=== PATIENT | female | born 1985 | race African-American/Black ===

== ENCOUNTER 2021-11-05 15:59 | Emergency (ER) | payer BC, SELFPAY ==
[2021-11-05 16:06] VITALS: BP 134/81; PULSE 90; RESP 18; TEMP 36.7; O2SAT 100
[2021-11-05 17:11] LABS: Basophils Percent Auto 0.4 % (0.2-1.2); Eosinophils Absolute Auto 0.1 K/mm3 (0-0.3); Eosinophils Percent Auto 1.2 % (0-4.4); Hematocrit 38.4 % (37.0-47.0); Hemoglobin 12.1 g/dL (12.0-15.0); Immature Granulocyte Absolute 0.01 K/mm3 (0.00-0.031); Immature Granulocyte Percent A 0.1 % (0-0.5); Lymphocytes Absolute Auto 2.28 K/mm3 (0.9-3.2); Lymphocytes Percent Auto 29.5 % (18.3-44.2); Mean Corpuscular HGB Conc 31.5 g/dl (32-36); Mean Corpuscular Hemoglobin 25.6 pg (26-34); Mean Corpuscular Volume 81.2 fl (80-100); Mean Platelet Volume 9.9 fl (7.4-10.4); Monocytes Absolute Auto 0.7 K/mm3 (0.1-0.6); Monocytes Percent Auto 8.5 % (2.6-8.5); Neutrophils Absolute Auto 4.7 K/mm3 (1.3-6.7); Neutrophils Percent Auto 60.3 % (45.5-73.1); Platelet Count Result 270 k/mm3 (150-375); Red Blood Count 4.73 M/mm3 (4.2-5.4); Red Cell Distribution Width 13.6 % (11.5-14.5); White Blood Count 7.7 K/mm3 (4.5-10.0)
[2021-11-05 17:27] LABS: Beta HCG Quantitative 25.32 mIU/ML
--- NOTE | 2021-11-05 19:41 | ED.PREGNANCY ---
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 Reports she started having some spotting yesterday. Today she has had some bright red blood. She has not been evaluated or had an ultrasound yet this . Does report some mild cramping. Denies fever. Related Data Allergies Allergy/AdvReac Type Severity Reaction Status Date / Time No Known Allergies Allergy Verified 11/05/21 19:31 Review of Systems Review of Systems: CONSTITUTIONAL: Denies fever GASTROINTESTINAL: Denies vomiting All systems reviewed & are unremarkable except as noted in HPI and below PMFSH Past Medical History Medical History (Updated 11/05/21 @ 20:57 by Lucinda Santizo PA-C) No active medical problems Social History Social History (Updated 11/05/21 @ 19:42 by Lucinda Santizo PA-C) Smoking status: Never smoker Exam Narrative: GENERAL: Well-appearing, well-nourished, and in no acute distress. HEAD: Normocephalic, atraumatic. EYES: EOMI. CHEST: Clear to auscultation. No respiratory distress. No wheezes rales or rhonchi HEART: Regular rate and rhythm. No murmur heard. Normal peripheral pulses. ABDOMEN: Soft, nontender, nondistended, normal active bowel sounds. EXTREMITIES: Normal range of motion. No edema. SKIN: Warm, dry, no rash. NEURO: No focal deficits. Alert and oriented x3. PSYCH: Normal mood and affect PELVIC: Small amount of dark red blood in the vaginal vault. Normal appearing cervix, closed Course Vital Signs Vital signs: Vital Signs Temperature 98.0 F 11/05/21 16:06 Pulse Rate 90 11/05/21 16:06 Respiratory Rate 18 11/05/21 16:06 Blood Pressure 134/81 11/05/21 16:06 Pulse Oximetry 100 11/05/21 16:06 Oxygen Delivery Room Air 11/05/21 16:06 Temperature 98.0 F 11/05/21 16:06 Pulse Rate 90 11/05/21 16:06 Respiratory Rate 18 11/05/21 16:06 Blood Pressure 134/81 06/29/22 16:06 Pulse Oximetry 100 11/05/21 16:06 Oxygen Delivery Room Air 11/05/21 16:06 MDM - OB/Uterine Contractions MDM Narrative Medical decision making narrative: Patient presents to the emergency department for vaginal bleeding, about 6 weeks by LMP. Her vitals are stable. No concerning amount of bleeding noted on exam. Hemoglobin is normal. Patient is B+. Quantitative beta-hCG is noted to be 25.32. Spoke with patient about work-up. I attempted to notify her primary provider, but was unable to get a hold of her. Will send patient with repeat quantitative beta-hCG order and is instructed to call in the morning to make an appointment with her provider. She is stable and felt appropriate for further outpatient evaluation. She was given warnings to return to the ER Lab Data Attestation: I reviewed the patient's lab results. Result diagrams: 11/05/21 16:52 Labs: Lab Results 11/05/21 11/05/21 11/05/21 Range/Units 16:52 16:52 16:52 WBC 7.7 (4.5-10.0) K/mm3 RBC 4.73 (4.2-5.4) M/mm3 Hgb 12.1 (12.0-15.0) g/dL Hct 38.4 (37.0-47.0) % MCV 81.2 (80-100) fl MCH 25.6 L (26-34) pg MCHC 31.5 L (32-36) g/dl RDW 13.6 (11.5-14.5) % Plt Count 270 (150-375) k/mm3 MPV 9.9 (7.4-10.4) fl Immature Gran % (Auto) 0.1 (0-0.5) % Neut % (Auto) 60.3 (45.5-73.1) % Lymph % (Auto) 29.5 (18.3-44.2) % [place] % (Auto) 8.5 (2.6-8.5) % Eos % (Auto) 1.2 (0-4.4) % Baso % (Auto) 0.4 (0.2-1.2) % Lymph # (Auto) 2.28 (0.9-3.2) K/mm3 [place] # (Auto) 0.7 H (0.1-0.6) K/mm3 Eos # (Auto) 0.1 (0-0.3) K/mm3 Baso # (Auto) 0.0 (0.0-0.1) K/mm3 Abs Immat Gran (auto) 0.01 (0.00-0.031) K/mm3 Absolute Neuts (auto) 4.7 (1.3-6.7) K/mm3 Absolute Nucleated RBC
== END 2021-11-05 21:04 | disposition home or self-care (01) ==
PROVIDERS: Emergency Medicine; Emergency Provider Emergency Medicine; PCP Internal Medicine
DX: O20.0 Threatened abortion (principal)
CPT/HCPCS: 36415; 84702; 85025; 85461; 99284

== ENCOUNTER 2024-09-21 15:47 | Emergency (ER) | payer OTHER, SELFPAY ==
--- NOTE | ~2024-09-21 | US_ITS ---
FIRST TRIMESTER ULTRASOUND 09/21/2024 17:30 CDT Ordering provider: Sanjeev Cruz MD History: . VB in . Comparison: None. FINDINGS: INTRAUTERINE GESTATIONAL SAC: Present. YOLK SAC: Not seen. POLE: Present. Measures 0.56 cm. equivalent to 6 weeks and 1 day. No heart rate. GESTATIONAL AGE BY TODAY'S US: 6 weeks and 1 day. UTERUS: The uterus measures 14.6x 5.1x 9.2 cm. in length which is within normal limits. No myometrial masses. FREE FLUID: None. OVARIES: Normal in size with the right measuring 4.2x 1.4x 2.1 cm and the left measuring 3x 1.6x 1.9 cm. Doppler flow is demonstrated within both ovaries. ADNEXAL MASSES: None. IMPRESSION: Intrauterine with crown rump length measuring 0.56 cm equivalent to 6 weeks and 1 day. No heart tone is noted. Follow-up and clinical correlation advised. Dr. Sanjeev Cruz was notified with the result of the patient at 6:40 PM on September 21, 2024. Reviewed, dictated and finalized at location A. IMPRESSION: Intrauterine with crown rump length measuring 0.56 cm equivalent to 6 weeks and 1 day. No heart tone is noted. Follow-up and clinical correlation advised. Dr. Sanjeev Cruz was notified with the result of the patient at 6:40 PM on 2024.
--- OUTSIDE RECORDS SUMMARY | 2024-09-21 15:50 | XMS_ITS | Clinical Summary ---
Author Organization [facility] Address [address] [place] [address] Care Team Providers Care Machine Turner Name Role Phone Unavailable Primary Care Provider Unavailabl e Source Comments [facility],non-owned Affiliates and Associated Physician Practices is amultiple site organization consisting of ambulatory clinics and hospital sitesin [place], [place], [place] and [place]. This disclosure is being madepursuant to the Care Everywhere program and may not contain all information available regarding this patient. Last updated 18.[facility] Allergies No known active allergies Medications * Be aware that medications may not be up to date on this document. Alwaysverify current medications with the patient. Vit-DSS-Fe Fum-FA ( vitamin with iron) tabletIndicatio ns: Take 1 (one) tablet by mouth once daily Reasons: Active vitamin D3 (Cholecalcifero l) 25 MCG (1000 UNITS) tabletIndicatio ns:Vitamin D Deficiency Take 50 (fifty) tablets by mouth every 7 days Reasons: Vitamin D Deficiency Active famotidine (Pepcid) 20 MG tablet Take 1 (one) tablet by mouth once daily Active Active Problems Problem Noted Date Diagnosed Date BMI 45.0-49.9, adult 01/27/2023 Advanced maternal age in multigravida, third tri mester 01/27/2023 Recurrent loss, currently Family History Medical History Relation Name Comments Cancer Maternal Grandfather COPD - Chronic Obstructive Pulmonary Disease Maternal Grandmother Hypertension Maternal Grandmother Hypertension Mother Relation Name Status Comments Maternal Grandfather Maternal Grandmother Mother Social History Tobacco Use Types Packs/Day Years Used Date Smoking Tobacco: Never Smokeless Tobacco: Never Tobacco Cessation:Counseling Given: Not Answered Alcohol Use Standard Drinks/Week Comments Not Currently 0 (1 standard drink = 0.6 oz pur e alcohol) Comments No Sex and Gender Information Value Date Recorded Sex Assigned at Not on file Legal Sex Female 3:24 PM CDT Gender Identity Not on file Sexual Orientation Not on file Last Filed Vital Signs Vital Sign Reading Time Taken Comments Blood Pressure 112/69 03/12/2023 9:42 AM CDT Pulse 88 03/12/2023 9:42 AM CDT Temperature - - Respiratory Rate 18 03/12/2023 9:42 AM CDT Oxygen Saturation - - Inhaled Oxygen Concentration - - Weight 114.5 kg (252 lb 6.4 oz) 10/07/2022 2:28 PM CDT Height 157.5 cm (5' 2 ) 10/07/2022 2:28 PM CDT Body Mass Index 46.16 10/07/2022 2:28 PM CDT Plan of Treatment Upcoming Encounters Date Type Department Care Team (Late st Contact Info) Description 10/06/2024 2:30 PM CDT Appointment [facility] [address] [place], [place] [id number] Health Maintenance Due Date Last Done Comments PAP SMEAR 1987 HIV SCREENING 10/16/2002 HEPATITIS C SCREENING 10/12/2005 DTAP/TDAP/TD VACCINES (1 - Tdap) 10/16/2006 HEPATITIS B VACCINE (1 of 3 - 19+ 3-dose series) 10/16/2006 COVID-19 VACCINE (4 - 2023-2 5 season) 2024 03/13/2021, 06/21/2020, 05/31/2020 DEPRESSION SCREENING 05/10/2024 INFLUENZA VACCINE (Season Ended) 2025 02/16/2017, 03/20/2014 ZOSTER VACCINE (1 of 2) 10/16/2037 HIB VACCINE Aged Out No longer eligi ble based on patient's age to complete this topic HPV VACCINE Aged Out No longer eligi ble based on patient's age to complete this topic MENINGOCOCCAL (Group B) VACCINE SHARED DECISION-MAKING Aged Out No longer eligible based on patient's age to complete this topic MENINGOCOCCAL GROUPS A/C/Y/W VACCINE Aged Out No longer eligible b ased on patient's age to complete this topic PNEUMOCOCCAL VACCINE Aged Out No long er eligible based on patient's age to complete this topic
--- OUTSIDE RECORDS SUMMARY | 2024-09-21 15:50 | XMS_ITS | Data Portability ---
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 Plan of Treatment Reminders Order Date Submit Date Provider Last Modified By Organization Details Last Modified Time Details Appointments None recorded . Lab urinalys is, dipstick 2023 024 In-Office Order, Internal Use Only DO Not Attach Compendium DO Not Attach Compendium, Do Not Delete/merge, [id number] 03:49:00 urinalys is, dipstick 2022 023 [email or web address] In-Office Order, Internal Use Only DO Not Attach Compendium DO Not Attach Compendium, Do Not Delete/merge, [id number] 10:43:04 urinalys is, dipstick 2022 023 [email or web address] In-Office Order, Internal Use Only DO Not Attach Compendium DO Not Attach Compendium, Do Not Delete/merge, [id number] 11:03:22 Referral None recorded . Procedures None recorded . Surgeries None recorded . Imaging None recorded . Medication Orders fluconaz ole 150 mg tablet 2022 023 [id number], [address] , [place], [place], [id number], 3 11:20:06 Patient TargetsNo targets recorded. Patient Instructions Encounter Date Encounter Id Patient Instructions Last Modified By Organization Details Last Modified Time 03/08/2023 [id number] Attending Physician Attestation I did not personally see or examine the patient with the resident. I was physically present to provide indirect supervision through entire encounter. I have reviewed the documentation and agree with the history, physical findings, work-up, and medical decision making as recorded. Karen Blackwood MD mmetias Not available 03/08/2023 10:56:43 03/15/2023 [id number] On the date of this encounter, I was immediately available to assist the resident/fellow in the care of the patient, and have reviewed and agree with the resident s findings and plan of care. ~MD yeison Goodwin Not available 03/19/2023 13:16:40 03/29/2023 [id number] On the date of this encounter, I was immediately available to assist the resident/fellow in the care of the patient, and have reviewed and agree with the resident s findings and plan of care. ~MD yeison Goodwin Not available 03/29/2023 11:59:11 06/07/2023 [id number] On the date of this encounter, I saw and examined the patient, personally verifying the pittman and critical findings in the resident s note. I reviewed and agree with the resident/fellow s findings and plan. ~MD yeison Goodwin Not available 06/11/2023 10:39:23 Reason for Referral None Reported. Results Created Date Observation Date Name Description Value Unit Range Abnormal Flag Note LastModifiedBy Organization Detail LastModifiedTime 02/09/2002/10/2023 URINE CULTU SHERIE GAINES urine culture, routine FINAL REPORT Not Available [facility] ([facility]) [address] [place], [address], 02/10/2023 05:10:05 02/09/2002/10/2023 URINE CULTU RESHERIE result 1 COMMEN T Mixed uroge nital purvi 25,00 0-50, 000 colon y formi ng units per mL Not Available [facility] ([facility]) [address], [place], [address], 02/10/2023 05:10:05 02/09/20 23 02/08/2023 urina lysis , dipst ick Leukocytes Small Not Available In-Offi ce Order Internal Use Only DO Not Attach Compendium DO Not Attach Compendium, Do Not Delete/merge, [id number] 02/08/2023 16:04:22 02/09/20 23 02/08/2023 urina lysis , dipst ick Nitrite negati ve Not Available In-Office Order Internal Use Only DO Not Attach Compendium DO Not Attach Compendium, Do Not Delete/merge, [id number] 02/08/2023 16:04:22 02/09/20 23 02/08/2023 urina lysis , dipst ick Urobilinogen 2 Not Available In-Of fice Order Internal Use Only DO Not Attach Compendium DO Not Attach Compendium, Do Not Delete/merge, [id number] 02/08/2023 16:04:22 02/09/20 23 02/08/2023 urina lysis , dipst ick Protein Negati ve Not Available In-Office Order Internal Use Only DO Not Attach Compendium DO Not Attach Compendium, Do Not Delete/merge, [id number] 02/08/2023 16:04:22 02/09/20 23 02/08/2023 urina lysis , dipst ick pH 6.0 Not Available In-Office Order Internal Use Only DO Not Attach Compendium DO Not Attach Compendium, Do Not Delete/merge, [id number] 02/08/2023 16:04:22 02/09/20 23 02/08/2023 urina lysis , dipst ick Blood Non-He molyze d: Trace Not Available In-Office Order Internal Use Only DO Not Attach Compendium DO Not Attach Compendium, Do Not Delete/merge, [id number] 02/08/2023 16:04:22 02/09/20 23 02/08/2023 urina lysis , dipst ick Specific Haines 1.025 Not Available In-Off ice Order Internal Use Only DO Not Attach Compendium DO Not Attach Compendium, Do Not Delete/merge, [id number] 02/08/2023 16:04:22 02/09/20 23 02/08/2023 urina lysis , dipst ick Ketone Negati ve Not Available In-Office Order Internal Use Only DO Not Attach Compendium DO Not Attach Compendium, Do Not Delete/merge, [id number] 02/08/2023 16:04:22 02/09/20 23 02/08/2023 urina lysis , dipst ick Bilirubin Negati ve Not Available In-Office Order Internal Use Only DO Not Attach Compendium DO Not Attach Compendium, Do Not Delete/merge, [id number] 02/08/2023 16:04:22 02/09/20 23 02/08/2023 urina lysis , dipst ick Glucose Negati ve Not Available In-Office Order Internal Use Only DO Not Attach Compendium DO Not Attach Compendium, Do Not Delete/merge, [id number] 02/08/2023 16:04:22 02/16/20 23 02/16/2023 NUSWA B VAGIN ITIS PLUS (VG+) atopobium vaginae LOW - 0 score Not Available [facility] ([facility]) [address] [place], [address], 02/17/2023 14:11:30 02/16/20 23 02/16/2023 NUSWA B VAGIN ITIS PLUS (VG+) bvab 2 LOW - 0 score Not Available [facility] ([facility]) [address] [place], [address], 02/17/2023 14:11:30 02/16/20 23 02/16/2023 NUSWA B VAGIN ITIS PLUS (VG+) megasphaera 1 LOW - 0 score Calcu late total score by binh g the 3 indiv idual bacte rial vagin osis (BV) marke r score s toget her. Total score is inter prete d as follo ws: Total score 0-1: Indic ates the absen ce of BV. Total score 2: Indet ermin ate for BV. Addit ional clini cristina data shoul d be evalu ated to estab douglas a diagn osis. Total score 3-6: Indic ates the prese nce of BV. This test was devel oped and its perfo rmanc e zoila cteri stics deter mined by [facility]. It has not been clear ed or appro zoë by the Food and Drug Admin istra tion. Not Available [facility] ([facility]) [address], [place], [address], 02/17/2023 14:11:30 02/16/2002/16/2023 NUSWA B VAGIN ITIS PLUS (VG+) paulei albicans, ABIGAIL NEGATI VE negati ve Not Available [facility] ([facility]) [address] [place], [address], 02/17/2023 14:11:30 02/16/2002/16/2023 NUA B VAGIN ITIS PLUS (VG+) paulie glabrata, ABIGAIL NEGATI VE negati ve Not Available [facility] ([facility]) [address] [place], [address], 02/17/2023 14:11:30 02/16/2002/17/2023 NUA B VAGIN ITIS PLUS (VG+) trich vag by ABIGAIL NEGATI VE negati ve Not Available [facility] ([facility]) [address] [place], [address], 02/17/2023 14:11:30 02/16/2002/17/2023 NUSWA B VAGIN ITIS PLUS (VG+) chlamydia trachomatis, ABIGAIL NEGATI VE negati ve Not Available [facility] ([facility]) [address] [place], [address], 02/17/2023 14:11:30 02/16/2002/17/2023 NUSWA B VAGIN ITIS PLUS (VG+) neisseria gonorrhoeae, ABIGAIL NEGATI VE negati ve Not Available [facility] ([facility]) [address] [place], [address], 02/17/2023 14:11:30 02/16/2002/17/2023 STREP GP B ABIGAIL strep gp B ABIGAIL NEGATI VE negati ve Cente rs for Disea se Contr ol and Preve ntion (CDC) and Ameri can Congr ess of Obste trici ans and Gynec ologi sts (ACOG ) guide lines for preve ntion of perin atal group B strep tococ cristina (GBS) disea se speci fy co-co llect ion of a vagin al and recta l swab speci men to maxim ize sensi tivit y of GBS detec tion. Per the CDC and ACOG, swabb ing both the lower vagin a and rectu m subst antia lly incre ases the yield of detec tion antonia red with sampl ing the vagin a alone . Penic illin G, ampic illin , or cefaz luis are indic ated for intra partu m proph ylaxi s of perin atal GBS colon izati on. Refle x susce ptibi lity testi ng shoul d be perfo rmed prior to use of clind amyci n only on GBS isola mac from penic illin -faviola rgic women who are consi dered a high risk for anaph ylaxi s. Treat ment with vanco mycin witho ut addit ional testi ng is warra nted if resis tance to clind amyci n is noted . Not Available [facility] ([facility]) [address], [place], [address], 02/17/2023 14:11:31 02/16/2002/15/2023 urina lysis , dipst ick Leukocytes Trace Not Available In-Offi ce Order Internal Use Only DO Not Attach Compendium DO Not Attach Compendium, Do Not Delete/merge, [id number] 02/15/2023 08:58:36 02/16/2002/15/2023 urina lysis , dipst ick Nitrite negati ve Not Available In-Office Order Internal Use Only DO Not Attach Compendium DO Not Attach Compendium, Do Not Delete/merge, [id number] 02/15/2023 08:58:36 02/16/2002/15/2023 urina lysis , dipst ick Urobilinogen .2 Not Available In-Of fice Order Internal Use Only DO Not Attach Compendium DO Not Attach Compendium, Do Not Delete/merge, 02/15/2023 08:58:36 02/16/2002/15/2023 urina lysis , dipst ick Protein Negati ve Not Available In-Office Order Internal Use Only DO Not Attach Compendium DO Not Attach Compendium, Do Not Delete/merge, 02/15/2023 08:58:36 02/16/2002/15/2023 urina lysis , dipst ick pH 6.5 Not Available In-Office Order Internal Use Only DO Not Attach Compendium DO Not Attach Compendium, Do Not Delete/merge, 02/15/2023 08:58:36 02/16/2002/15/2023 urina lysis , dipst ick Blood Negati ve Not Available In-Office Order Internal Use Only DO Not Attach Compendium DO Not Attach Compendium, Do Not Delete/merge, 02/15/2023 08:58:36 02/16/2002/15/2023 urina lysis , dipst ick Specific Haines 1.020 Not Available In-Off ice Order Internal Use Only DO Not Attach Compendium DO Not Attach Compendium, Do Not Delete/merge, 02/15/2023 08:58:36 02/16/2002/15/2023 urina lysis , dipst ick Ketone Negati ve Not Available In-Office Order Internal Use Only DO Not Attach Compendium DO Not Attach Compendium, Do Not Delete/merge, [id number] 02/15/2023 08:58:36 02/16/2002/15/2023 urina lysis , dipst ick Bilirubin Negati ve Not Available In-Office Order Internal Use Only DO Not Attach Compendium DO Not Attach Compendium, Do Not Delete/merge, 02/15/2023 08:58:36 02/16/20 23 02/15/2023 urina lysis , dipst ick Glucose Negati ve Not Available In-Office Order Internal Use Only DO Not Attach Compendium DO Not Attach Compendium, Do Not Delete/merge, [id number] 02/15/2023 08:58:36 02/23/2002/23/2023 NUSWA B VAGIN ITIS PLUS (VG+) atopobium vaginae Low - 0 score Not Available [facility] ([facility]) [address], [place], [address], 02/24/2023 08:24:57 02/23/2002/23/2023 NUSWA B VAGIN ITIS PLUS (VG+) bvab 2 Low - 0 score Not Available [facility] ([facility]) [address], [place], [address], 02/24/2023 08:24:57 02/23/2002/23/2023 NUSWA B VAGIN ITIS PLUS (VG+) megasphaera 1 Low - 0 score Calcu late total score by binh underwood the 3 indiv idual bacte rial vagin osis (BV) marke r score s toget her. Total score is inter prete d as follo ws: Total score 0-1: Indic ates the absen ce of BV. Total score 2: Indet ermin ate for BV. Addit ional clini cristina data shoul d be evalu ated to estab douglas a diagn osis. Total score 3-6: Indic ates the prese nce of BV. This test was devel oped and its perfo rmanc e zoila cteri stics deter mined by [facility]. It has not been clear ed or appro zoë by the Food and Drug Admin istra tion. Not Available [facility] ([facility]) [address], [place], [address], 02/24/2023 08:24:57 02/23/2002/24/2023 NUSWA B VAGIN ITIS PLUS (VG+) paulie albicans, ABIGAIL Positi ve negati ve abnormal Not Available [facility] ([facility]) [address], [place], [address], 02/24/2023 08:24:57 02/23/2002/24/2023 NUSWA B VAGIN ITIS PLUS (VG+) paulie glabrata, ABIGAIL Negati ve negati ve Not Available [facility] ([facility]) [address], [place], [address], 02/24/2023 08:24:57 02/23/2002/24/2023 NUSWA B VAGIN ITIS PLUS (VG+) trich vag by ABIGAIL Negati ve negati ve Not Available [facility] ([facility]) [address], [place], [address], 02/24/2023 08:24:57 02/23/2002/24/2023 NUA B VAGIN ITIS PLUS (VG+) chlamydia trachomatis, ABIGAIL Negati ve negati ve Not Available [facility] ([facility]) [address], [place], [address], 02/24/2023 08:24:57 02/23/2002/24/2023 NUSWA B VAGIN ITIS PLUS (VG+) neisseria gonorrhoeae, ABIGAIL Negati ve negati ve Not Available [facility] ([facility]) [address], [place], [address], 02/24/2023 08:24:57 02/23/2002/22/2023 urina lysis , dipst ick Leukocytes Small Not Available In-Offi ce Order Internal Use Only DO Not Attach Compendium DO Not Attach Compendium, Do Not Delete/merge, [id number] 02/22/2023 09:45:25 02/23/20 23 02/22/2023 urina lysis , dipst ick Nitrite negati ve Not Available In-Office Order Internal Use Only DO Not Attach Compendium DO Not Attach Compendium, Do Not Delete/merge, [id number] 02/22/2023 09:45:25 02/23/20 23 02/22/2023 urina lysis , dipst ick Urobilinogen 1 Not Available In-Of fice Order Internal Use Only DO Not Attach Compendium DO Not Attach Compendium, Do Not Delete/merge, [id number] 02/22/2023 09:45:25 02/23/2002/22/2023 urina lysis , dipst ick Protein Trace Not Available In-Office Order Internal Use Only DO Not Attach Compendium DO Not Attach Compendium, Do Not Delete/merge, [id number] 02/22/2023 09:45:25 02/23/2002/22/2023 urina lysis , dipst ick pH 6.0 Not Available In-Office Order Internal Use Only DO Not Attach Compendium DO Not Attach Compendium, Do Not Delete/merge, 02/22/2023 09:45:25 02/23/2002/22/2023 urina lysis , dipst ick Blood Hemoly zed: Trace Not Available In-Office Order Internal Use Only DO Not Attach Compendium DO Not Attach Compendium, Do Not Delete/merge, 02/22/2023 09:45:25 02/23/2002/22/2023 urina lysis , dipst ick Specific Haines 1.030 Not Available In-Off ice Order Internal Use Only DO Not Attach Compendium DO Not Attach Compendium, Do Not Delete/merge, 02/22/2023 09:45:25 02/23/2002/22/2023 urina lysis , dipst ick Ketone Trace Not Available In-Office Order Internal Use Only DO Not Attach Compendium DO Not Attach Compendium, Do Not Delete/merge, [id number] 02/22/2023 09:45:25 02/23/2002/22/2023 urina lysis , dipst ick Bilirubin Small Not Available In-Offic e Order Internal Use Only DO Not Attach Compendium DO Not Attach Compendium, Do Not Delete/merge, 02/22/2023 09:45:25 02/23/2002/22/2023 urina lysis , dipst ick Glucose Negati ve Not Available In-Office Order Internal Use Only DO Not Attach Compendium DO Not Attach Compendium, Do Not Delete/merge, 02/22/2023 09:45:25 03/08/2003/0803/08/2023 urina lysis , dipst ick Leukocytes Trace Not Available In-Offi ce Order Internal Use Only DO Not Attach Compendium DO Not Attach Compendium, Do Not Delete/merge, [id number] 03/08/2023 10:32:28 03/08/20 23 03/08/2023 urina lysis , dipst ick Nitrite negati ve Not Available In-Office Order Internal Use Only DO Not Attach Compendium DO Not Attach Compendium, Do Not Delete/merge, [id number] 03/08/2023 10:32:28 03/08/20 23 03/08/2023 urina lysis , dipst ick Urobilinogen 1 Not Available In-Of fice Order Internal Use Only DO Not Attach Compendium DO Not Attach Compendium, Do Not Delete/merge, [id number] 03/08/2023 10:32:28 03/08/20 23 03/08/2023 urina lysis , dipst ick Protein Negati ve Not Available In-Office Order Internal Use Only DO Not Attach Compendium DO Not Attach Compendium, Do Not Delete/merge, [id number] 03/08/2023 10:32:28 03/08/20 23 03/08/2023 urina lysis , dipst ick pH 6.0 Not Available In-Office Order Internal Use Only DO Not Attach Compendium DO Not Attach Compendium, Do Not Delete/merge, [id number] 03/08/2023 10:32:28 03/08/20 23 03/08/2023 urina lysis , dipst ick Blood Negati ve Not Available In-Office Order Internal Use Only DO Not Attach Compendium DO Not Attach Compendium, Do Not Delete/merge, [id number] 03/08/2023 10:32:28 03/08/20 23 03/08/2023 urina lysis , dipst ick Specific Haines 1.030 Not Available In-Off ice Order Internal Use Only DO Not Attach Compendium DO Not Attach Compendium, Do Not Delete/merge, [id number] 03/08/2023 10:32:28 03/08/20 23 03/08/2023 urina lysis , dipst ick Ketone Negati ve Not Available In-Office Order Internal Use Only DO Not Attach Compendium DO Not Attach Compendium, Do Not Delete/merge, [id number] 03/08/2023 10:32:28 03/08/20 23 03/08/2023 urina lysis , dipst ick Bilirubin Small Not Available In-Offic e Order Internal Use Only DO Not Attach Compendium DO Not Attach Compendium, Do Not Delete/merge, [id number] 03/08/2023 10:32:28 03/08/20 23 03/08/2023 urina lysis , dipst ick Glucose Negati ve Not Available In-Office Order Internal Use Only DO Not Attach Compendium DO Not Attach Compendium, Do Not Delete/merge, 03/08/2023 10:32:28 03/15/20 23 03/15/2023 urina lysis , dipst ick Leukocytes Trace Not Available In-Offi ce Order Internal Use Only DO Not Attach Compendium DO Not Attach Compendium, Do Not Delete/merge, 03/15/2023 09:26:18 03/15/20 23 03/15/2023 urina lysis , dipst ick Nitrite negati ve Not Available In-Office Order Internal Use Only DO Not Attach Compendium DO Not Attach Compendium, Do Not Delete/merge, 03/15/2023 09:26:18 03/15/20 23 03/15/2023 urina lysis , dipst ick Urobilinogen 1 Not Available In-Of fice Order Internal Use Only DO Not Attach Compendium DO Not Attach Compendium, Do Not Delete/merge, 03/15/2023 09:26:18 03/15/20 23 03/15/2023 urina lysis , dipst ick Protein Negati ve Not Available In-Office Order Internal Use Only DO Not Attach Compendium DO Not Attach Compendium, Do Not Delete/merge, 03/15/2023 09:26:18 03/15/20 23 03/15/2023 urina lysis , dipst ick pH 5.5 Not Available In-Office Order Internal Use Only DO Not Attach Compendium DO Not Attach Compendium, Do Not Delete/merge, 03/15/2023 09:26:18 03/15/20 23 03/15/2023 urina lysis , dipst ick Blood Negati ve Not Available In-Office Order Internal Use Only DO Not Attach Compendium DO Not Attach Compendium, Do Not Delete/merge, 03/15/2023 09:26:18 03/15/20 23 03/15/2023 urina lysis , dipst ick Specific Haines 1.030 Not Available In-Off ice Order Internal Use Only DO Not Attach Compendium DO Not Attach Compendium, Do Not Delete/merge, 03/15/2023 09:26:18 03/15/20 23 03/15/2023 urina lysis , dipst ick Ketone Negati ve Not Available In-Office Order Internal Use Only DO Not Attach Compendium DO Not Attach Compendium, Do Not Delete/merge, 03/15/2023 09:26:18 03/15/20 23 03/15/2023 urina lysis , dipst ick Bilirubin Negati ve Not Available In-Office Order Internal Use Only DO Not Attach Compendium DO Not Attach Compendium, Do Not Delete/merge, 03/15/2023 09:26:18 03/15/20 23 03/15/2023 urina lysis , dipst ick Glucose Negati ve Not Available In-Office Order Internal Use Only DO Not Attach Compendium DO Not Attach Compendium, Do Not Delete/merge, 03/15/2023 09:26:18 06/07/19 24 06/07/2023 urina lysis , dipst ick Leukocytes Negati ve Not Available In-Office Order Internal Use Only DO Not Attach Compendium DO Not Attach Compendium, Do Not Delete/merge, 06/07/2023 16:09:45 06/07/19 24 06/07/2023 urina lysis , dipst ick Nitrite negati ve Not Available In-Office Order Internal Use Only DO Not Attach Compendium DO Not Attach Compendium, Do Not Delete/merge, 06/07/2023 16:09:45 06/07/19 24 06/07/2023 urina lysis , dipst ick Urobilinogen .2 Not Available In-Of fice Order Internal Use Only DO Not Attach Compendium DO Not Attach Compendium, Do Not Delete/merge, 06/07/2023 16:09:45 06/07/19 24 06/07/2023 urina lysis , dipst ick Protein Trace Not Available In-Office Order Internal Use Only DO Not Attach Compendium DO Not Attach Compendium, Do Not Delete/merge, 06/07/2023 16:09:45 06/07/19 24 06/07/2023 urina lysis , dipst ick pH 6.0 Not Available In-Office Order Internal Use Only DO Not Attach Compendium DO Not Attach Compendium, Do Not Delete/merge, 06/07/2023 16:09:45 06/07/19 24 06/07/2023 urina lysis , dipst ick Blood Negati ve Not Available In-Office Order Internal Use Only DO Not Attach Compendium DO Not Attach Compendium, Do Not Delete/merge, 06/07/2023 16:09:45 06/07/19 24 06/07/2023 urina lysis , dipst ick Specific Haines 1.030 Not Available In-Off ice Order Internal Use Only DO Not Attach Compendium DO Not Attach Compendium, Do Not Delete/merge, 06/07/2023 16:09:45 06/07/19 24 06/07/2023 urina lysis , dipst ick Ketone Negati ve Not Available In-Office Order Internal Use Only DO Not Attach Compendium DO Not Attach Compendium, Do Not Delete/merge, 06/07/2023 16:09:45 06/07/19 24 06/07/2023 urina lysis , dipst ick Bilirubin Negati ve Not Available In-Office Order Internal Use Only DO Not Attach Compendium DO Not Attach Compendium, Do Not Delete/merge, 06/07/2023 16:09:45 06/07/19 24 06/07/2023 urina lysis , dipst ick Glucose Negati ve Not Available In-Office Order Internal Use Only DO Not Attach Compendium DO Not Attach Compendium, Do Not Delete/merge, 06/07/2023 16:09:45 02/13/20 23 02/12/2023 US, obste tric, mater nal evalu ation + anato my No observ ation record ed. [address], [address], 02/22/2023 09:53:13 02/20/2002/19/2023 US, obste tric, mater nal evalu ation + anato my No observ ation record ed. [address], [address], 02/22/2023 09:53:13 02/27/2002/26/2023 US, obste tric, mater nal evalu ation + anato my No observ ation record ed. [address], [address], 03/08/2023 10:57:21 03/05/2003/05/2023 US, obste tric, mater nal evalu ation + anato my No observ ation record ed. [address], [address], 03/08/2023 10:59:11 03/12/20 23 03/12/2023 US, obste tric, mater nal evalu ation + anato my No observ ation record ed. [address], [address], 03/15/2023 13:51:07 Result Notes None recorded. Problems Name Problem SNOMED Code Status Onset Date Resolution Date Notes Provider Name and Address Organization Details Recorded Time Methicil tiffany resistan t Staphylo coccus aureus infectio n 199783108 Completed 01/25/2023 Angeli Goodwin MD Attn: Hayder underwood,[address] [place], [address], [place] [facility] 3 09:31:21 Obesity 821344688 Active 2020 Irena Richardson MD Attn: Accountin g,[address] [facility], [place], [address], [place] [facility] 3 11:22:23 Genital herpes simplex 76730638 Active 2020 Jim Preciado null, [place] [facility] 1 15:42:14 Abnormal progeste promise 807905192 Completed 202001/25/2023 Angeli Goodwin MD Attn: Accountin g,[address] [facility], [place], [address], [place] [facility] 3 09:31:55 Normal pregnanc y 64538346 Completed 202004/04/2024 Angeli Goodwin MD Attn: Accountin g,[address] [facility], [place], [address], [place] [facility] 4 08:20:55 Pregnanc y 01011676 Completed 202002/18/2021 Maria Elena Souza [place] null, [place] [facility] 3 11:22:34 Abnormal progeste promise 064699142 Completed 2020 Jim Prec[place]ado [place] [facility] 1 15:42:14 Genital herpes simplex 57946135 Completed 2020 Jim Preci[place] [facility] 1 15:42:14 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 Jim Prec[place]ado [place] [facility] 1 15:42:14 Obesity 860357250 Completed 2020 Jim SahhidIlana [place] [facility] 1 15:42:15 Methicil tiffany resistan t Staphylo coccus aureus infectio n 304969168 Completed Jim ShahidIlana [place] [facility] 1 15:42:14 Pregnanc y 14891244 Completed 202203/29/2023 Maria Elena Souza [place], [place] [facility] 3 11:22:34 Recurren t miscarri age 416177310 Completed 2022 Irena Richardson MD Attn: Phyllisin g,[address] [place], [address], [place] [facility] 3 11:22:24 Recurren t miscarri age 175677453 Active 2022 Irena Richardson MD Attn: Phyllisin g,[address] [place], [address], [place] [facility] 3 11:22:24 Obesity 614960307 Completed 2020 Irena Richardson MD Attn: Hayder g,[address] [place], [address], [place] [facility] 3 11:22:23 Advanced maternal age 510051987 Completed 2022 Irena Richardson MD Attn: Hayder g,[address] [place], [address], [place] [facility] 3 11:22:23 Advanced maternal age 963370517 Completed 202204/04/2024 Angeli Goodwin MD Attn: Hayder g,[address] [place], [address], [place] [facility] 4 08:20:41 Group B Streptoc occus carrier [id number] 03 Completed 2016 Irena Richardson MD Attn: Hayder g,[address] [place], [address], [place] [facility] 3 11:22:23 Candidia sis of vagina [id number] Completed 2022 fluconaz ole given Irena Richardson MD Attn: Hayder g,[address] [place], [address], [place] [facility] 3 11:22:23 Otitis media [id number] Active 2023 Angeli Goodwin MD Attn: Hayder underwood,[address] [facility], [place], [address], [place] [facility] 4 08:20:30 Group B Streptoc occus carrier [id number] 03 Completed 201604/04/2024 Angeli Goodwin MD Attn: Hayder underwood,[address] [facility], [place], [address], [place] [facility] 4 08:20:36 Subcutan eous contrace ptive implant palpable [id number] Completed 201601/31/2021 Jim Ilana [facility], [place] - [facility] 1 13:45:21 Chronic idiopath ic constipa tion [id number] Completed 201601/25/2023 Angeli Goodwin MD Attn: Hayder underwood,[address] [facility], [place], [address], [facility] - [facility] 3 09:32:02 Problem Notes None recorded. Procedures Surgical History Date Name Laterality Status Provider Name and Address Organization Details Recorded Time 02/07/20 22 Date of Last Pap Smear completed Maria Elena Souza MA [facility] - [facility] 02/06/2022 10:43:27 02/19/20 21 Endometrial Biopsy completed Jim Preciado [facility] 02/18/2021 16:53:18 10/18/19 21 Control Implant Removal completed Jim Preciado [facility] 2020 15:18:24 08/24/19 18 Control Implant Removal completed Mary Andino MA CT - [facility] 08/23/2017 11:41:33 08/24/19 18 Control Implant Insertion completed Mary Andino MA CT - [facility] 08/23/2017 11:41:39 05/30/19 15 Control Implant Insertion completed Mary Andino MA CT - [facility] 05/30/2014 18:57:39 Imaging Results Imaging Date Name Status LastModified by Organiz ation Details LastModified Time 02/12/2023 US, obstetric, maternal evaluation + anatomy [facility] [address] [place] [address], [address], 02/22/2023 09:53:13 02/19/2023 US, obstetric, maternal evaluation + [facility] [address] [place], [address], 02/22/2023 09:53:13 02/26/2023 US, obstetric, maternal evaluation + anatomy c [id number]|2024-09-21 15:50:00|2024-09-21 15:49:00|XMS_ITS|BKG NATALIEON|External Medical Summaries|[id number]|" Clinical Summary Created on: September 21, 2024 Sandra Pisano : 1985 Sex: Female Author Organization [facility] Address [address] [place] [address] Care Team Providers Care Trouble Locater Name Role Phone Amalia Castro MD Primary Care Provider [phone] Social History Tobacco Use Types Packs/Day Years Used Date Smoking Tobacco: Never Assessed Comments Unknown Sex and Gender Information Value Date Recorded Sex Assigned at Not on file Legal Sex Female 11:16 AM CDT Gender Identity Not on file Sexual Orientation Not on file Plan of Treatment Health Maintenance Due Date Last Done Comments Cervical Cancer Screening Pa p Smear (Age 30 to 64) Every 3 Years 1985 Annual Physical 10/16/1990 Hepatitis C 10/16/2005 DTaP, Tdap and Td Vaccines ( 1 - Tdap) 10/16/2006 Hepatitis B Vaccines (1 of 3 - 19+ 3-dose series) 10/16/2006 Cervical Cancer Screening Pa p with HPV Testing (Age 30 to 64) Every 5 Years 10/16/2017 Cervical Cancer Screening with HPV 10/16/2017 COVID-19 Vaccine (2023-2 5 season) 2024 HPV Vaccines Aged Out No longer eligi ble based on patient's age to complete this topic Meningococcal B Vaccine Aged Out No l onger eligible based on patient's age to complete this topic Meningococcal Vaccine Aged Out No juliet mati eligible based on patient's age to complete this topic Pneumococcal Vaccine: Pediat rics (0 to 5 Years) and At-Risk Patients (6 to 49 Years) Aged Out No longer eligible b ased on patient's age to complete this topic RSV Immunizations Under 20 Months Aged Out No longer eligible based on patient's age to complete this topic Insurance [facility] Care Teams Trouble Locater Relationship Specialty Start Date End Date Amalia Castro MD [address] [place] [phone] PCP - General 01/20/23 "
[2024-09-21 16:02] VITALS: BP 131/84; PULSE 81; RESP 17; TEMP 37.2; O2SAT 100
--- NOTE | 2024-09-21 16:19 | PC.NURSE ---
1617-PATIENT REPORTS LAST MENSTRUAL PERIOD WAS THE END OF JULY 2024. PATIENT REPORTS SHE HAS HAD 3-4 MISCARRIAGES.
--- OUTSIDE RECORDS SUMMARY | 2024-09-21 16:35 | XMS_ITS | Clinical Summary ---
Author Organization [facility] Address [address] [place] [id number] Care Team Providers Care Data Review Specialist Name Role Phone Amalia Castro MD Primary Care Provider Social History Tobacco Use Types Packs/Day Years [...] patient's age to complete this topic Insurance [facility] Care Teams Data Review Specialist Relationship Specialty Start Date End Date Amalia Castro MD [address] [place] [phone] PCP - General 01/20/23
--- OUTSIDE RECORDS SUMMARY | 2024-09-21 16:35 | XMS_ITS | Clinical Summary ---
Author Organization [facility] Address [address] [place] [address] Care Team Providers Care Cytotechnologist Name Role Phone Unavailable Primary Care Provider Unavailabl e Source Comments [facility],non-owned Affiliates and Associated Physician Practices is amultiple site organization consisting of ambulatory clinics and hospital sitesin [place], [place], [place] and [place]. This disclosure is being madepursuant to the Care Everywhere program and may not contain all information available regarding this patient. Last updated 18.[facility] Allergies No known active allergies Medications * [...] Info) Description 10/06/2024 2:30 PM CDT Appointment [facility] [address] [place], [place] [id number] Health Maintenance Due Date Last Done Comments [...]
[2024-09-21 16:54] LABS: Basophils Percent Auto 0.5 % (0.2-1.2); Eosinophils Absolute Auto 0.2 K/mm3 (0-0.3); Eosinophils Percent Auto 2.1 % (0-4.4); Hematocrit 38.7 % (37.0-47.0); Hemoglobin 12.5 g/dL (12.0-15.0); Immature Granulocyte Absolute 0.03 K/mm3 (0.00-0.031); Immature Granulocyte Percent A 0.4 % (0-0.5); Lymphocytes Absolute Auto 2.19 K/mm3 (0.9-3.2); Lymphocytes Percent Auto 27.1 % (18.3-44.2); Mean Corpuscular HGB Conc 32.3 g/dl (32-36); Mean Corpuscular Hemoglobin 25.9 pg (26-34); Mean Corpuscular Volume 80.3 fl (80-100); Mean Platelet Volume 9.4 fl (7.4-10.4); Monocytes Absolute Auto 0.7 K/mm3 (0.1-0.6); Monocytes Percent Auto 8.2 % (2.6-8.5); Neutrophils Percent Auto 61.7 % (45.5-73.1); Platelet Count Result 277 k/mm3 (150-375); Red Blood Count 4.82 M/mm3 (4.2-5.4); Red Cell Distribution Width 13.4 % (11.5-14.5); White Blood Count 8.1 K/mm3 (4.5-10.0)
[2024-09-21 17:02] LABS: Add Urine Microscopic? YES; Appearance Urine Clear (Clear); Bacteria Urine None Seen /hpf; Bilirubin Urine Negative (Negative); Blood Urine 2+ (Negative); Color Urine Yellow (Yellow); Glucose Urine UA Negative (Negative); Ketones Urine Negative (Negative); Leukocyte Esterase Ur Negative LEU/UL (Negative); Nitrate Urine Negative (Negative); Non Pathogenic Casts 0-2; Protein Urine Negative (Negative); RBC Urine 0-2 /hpf (0-2); Specific Grav Ur 1.007 (1.001-1.035); Squamous Epithelial Cell Urine None Seen /hpf (Few); Urobilinogen Urine 0.2 mg/dL (<2.0); WBC Urine 0-5 /hpf (0-3)
[2024-09-21 17:07] LABS: Alanine Aminotransferase 18 U/L (6-35); Alkaline Phosphatase 109 U/L (38-126); Anion Gap 7 mmol/L (4-12); Aspartate Amino Transferase 29 U/L (14-36); Bilirubin,Total 0.3 mg/dL (0.2-1.3); Blood Urea Nitrogen 12 mg/dL (7-17); Calcium 8.6 mg/dL (8.4-10.2); Carbon Dioxide 25 mmol/L (22-30); Chloride 103 mmol/L (98-107); Estimated CRCL calculation 97 ml/min; Estimated Glomerular Filt Rate > 60; Glucose 87 mg/dL (65-110); Sodium 135 mmol/L (137-145)
[2024-09-21 18:06] VITALS: BP 118/78; PULSE 89; RESP 20; TEMP 36.6; O2SAT 98
[2024-09-21] MEDS: ACETAMINOPHEN 325 MG TABLET 650 MG PO (18:14)
--- NOTE | 2024-09-21 19:38 | ED_ITS ---
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 She is seeing Dr. San. She is B-positive. No trauma. No urinary frequency urgency or dysuria. No significant cramping. Related Data Allergies Allergy/AdvReac Type Severity Reaction Status Date / Time No Known Allergies Allergy Verified 09/21/24 16:05 Review of Systems 2 Review of Systems: All systems reviewed & are unremarkable except as noted in HPI and below Constitutional: Constitutional: Reports no additional constitutional complaints Cardiovascular: Cardiovascular: Reports no additional cardiovascular complaints Respiratory: Respiratory: Reports no additional respiratory complaints Gastrointestinal: Gastrointestinal: Reports no additional gastrointestinal complaints Genitourinary: Genitourinary: Reports no additional female genitourinary complaints [facility] Surgical History Surgical History (Updated 09/13/24 @ 15:39 by Cassie Stahl CMA) History of dilation and curettage Family History Family History Mother Hypertension Depression Grandparent Diabetes mellitus Hypertension Social History Social History (Updated 09/13/24 @ 15:40 by Cassie Stahl CMA) Smoking status: Never smoker Alcohol intake: current Alcohol use details: occasional Substance use: never Substance use type: does not use Current Housing: Decline to Answer Concerned About Future Housing: Decline to Answer Difficulty Paying Gas/Electric Bills: Decline to Answer Difficulty Paying for Meds: Decline to Answer Currently Unemployed: Decline to Answer Education: Decline to Answer Difficulty w/ Childcare or Family Care: Decline to Answer Living arrangements: with family Occupation/Education: occupation Gender identity (if verbalized by the patient): Female Sexual Orientation (if Verbalized by the Patient): Straight or Heterosexual Exam 2 Narrative: GENERAL: Well-appearing, well-nourished, and in no acute distress. HEAD: Normocephalic, atraumatic. ENT: Mucous membranes moist. CHEST: Clear to auscultation. No respiratory distress. HEART: Regular rate and rhythm. Normal peripheral pulses. ABDOMEN: Soft, nontender, nondistended. EXTREMITIES: Normal range of motion. No edema. SKIN: Warm, dry, no rash. NEURO: Alert and oriented x3. PSYCH: Normal mood and affect. Course Course Emergency Course: Discussed case with Dr. Yee. Patient requires 48 hour follow-up beta hCG. Patient verbalized understanding diagnosis and treatment plan. Vital Signs Vital signs: Vital Signs Temperature 98.9 F 09/21/24 16:02 Pulse Rate 81 09/21/24 16:02 Respiratory Rate 17 09/21/24 16:02 Blood Pressure 131/84 09/21/24 16:02 Pulse Oximetry 100 09/21/24 16:02 Oxygen Delivery Room Air 09/21/24 16:02 Temperature 98 F 09/21/24 18:06 Pulse Rate 89 09/21/24 18:06 Respiratory Rate 20 09/21/24 18:06 Blood Pressure 118/78 09/21/24 18:06 Pulse Oximetry 98 09/21/24 18:06 Oxygen Delivery Room Air 09/21/24 16:02 Medical Decision Making Vital Signs Vital Signs: Vital Signs Temperature 98.9 F 09/21/24 16:02 Pulse Rate 81 09/21/24 16:02 Respiratory Rate 17 09/21/24 16:02 Blood Pressure 131/84 09/21/24 16:02 Pulse Oximetry 100 09/21/24 16:02 Oxygen Delivery Room Air 09/21/24 16:02 Temperature 98 F 09/21/24 18:06 Pulse Rate 89 09/21/24 18:06 Respiratory Rate 20 09/21/24 18:06 Blood Pressure 118/78 09/21/24 18:06 Pulse Oximetry 98 09/21/24 18:06 Oxygen Delivery Room Air 09/21/24 16:02 Lab Data 09/21/24 16:45 09/21/24 16:45 Labs: Lab Results 09/21/24 09/21/24 Range/Units 16:45 16:51 WBC 8.1 (4.5-10.0) K/mm3 RBC 4.82 (4.2-5.4) M/mm3 Hgb 12.5 (12.0-15.0) g/dL Hct 38.7 (37.0-47.0) % MCV 80.3 (80-100) fl MCH 25.9 L (26-34) pg MCHC 32.3 (32-36) g/dl RDW 13.4 (11.5-14.5) % Plt Count 277 (150-375) k/mm3 MPV 9.4 (7.4-10.4) fl Immature Gran % (Auto) 0.4 (0-0.5) % Neut % (Auto) 61.7 (45.5-73.1) % Lymph % (Auto) 27.1 (18.3-44.2) % Norton % (Auto) 8.2 (2.6-8.5) % Eos % (Auto) 2.1 (0-4.4) % Baso % (Auto) 0.5 (0.2-1.2) % Lymph # (Auto) 2.19 (0.9-3.2) K/mm3 Norton # (Auto) 0.7 H (0.1-0.6) K/mm3 Eos # (Auto) 0.2 (0-0.3) K/mm3 Baso # (Auto) 0.0 (0.0-0.1) K/mm3 Abs Immat Gran (auto) 0.03 (0.00-0.031) K/mm3 Absolute Neuts (auto) 5.0 (1.3-6.7) K/mm3 Absolute Nucleated RBC 0.000 (0.0-0.012) K/mm3 Nucleated RBC % 0.0 (0.0-0.2) % Sodium 135 L (137-145) mmol/L Potassium 4.0 (3.4-5.0) mmol/L Chloride 103 (98-107) mmol/L Carbon Dioxide 25 (22-30) mmol/L Anion Gap 7 (4-12) mmol/L BUN 12 (7-17) mg/dL Creatinine 0.81 (0.7-1.0) mg/dL Estim Creat Clear Calc 97 ml/min Estimated GFR > 60 (59 - ) Glucose 87 (65-110) mg/dL Calcium 8.6 (8.4-10.2) mg/dL Total Bilirubin 0.3 (0.2-1.3) mg/dL AST 29 (14-36) U/L ALT 18 (6-35) U/L Alkaline Phosphatase 109 (38-126) U/L Total Protein 8.0 (6.3-8.2) g/dL Albumin 4.0 (3.5-5.1) g/dL Beta HCG, Quant 4461.20 mIU/ML Urine Color Yellow (Yellow) Urine Appearance Clear (Clear) Urine pH 6.0 (5.0-9.0) Ur Specific [place] 1.007 (1.001-1.035) Urine Protein Negative (Negative) mg/dL Urine Glucose (UA) Negative (Negative) mg/dL Urine Ketones Negative (Negative) mg/dL Ur Blood (Man) 2+ H (Negative) Urine Nitrate Negative (Negative) Urine Bilirubin Negative (Negative) Urine Urobilinogen 0.2 (<2.0) mg/dL Leukocyte Esterase Rfl Negative (Negative) LISS/UL Urine RBC 0-2 (0-2) /hpf Urine WBC 0-5 (0-3) /hpf Ur Squamous Epith Cells None seen (Few) /hpf Urine Bacteria None seen /hpf Urine Casts 0-2 Blood Type B Positive Antibody Screen Negative Screen Not Reportable Baby's Blood Type Not Reportable Baby's RENEE Not Reportable Doses of RhIg Required 0 Imaging Data Radiologist's impression: ITS Impressions Ultrasound 09/21/24 18:35 IMPRESSION: Intrauterine with crown rump length measuring 0.56 cm equivalent to 6 weeks and 1 day. No heart tone is noted. Follow-up and clinical correlation advised. Dr. Sanjeev Cruz was notified with the result of the patient at 6:40 PM on September 21, 2024. Discharge Plan Discharge Clinical Impression: Threatened miscarriage Patient Disposition: Home Condition: Stable Instructions: Antibiotic Form, Threatened Miscarriage (ED) Additional Instructions: [facility] 48 hours to have a repeat blood draw. You will also need follow-up with your literacy teacher. Return the ER if you have severe lower abdominal pain, you lose consciousness, or have additional concerns. Patient Language: Macedonian Prescriptions: No Action progesterone micronized [Prometrium] 200 mg capsule 200 mg PO QHS Qty: 30 0RF Other Ambulatory Orders: Beta HCG Quantitative (Routine) Timeframe: 20240923 Facility: [facility] - Location: [facility] OB Outpatient Ordered By: Sanjeev Cruz Follow-up/Referrals: UNKNOWN,DOCTOR [Primary Care Provider] - Kai San MD [Physician] - 1 Week
[2024-09-21 19:50] VITALS: BP 136/76; PULSE 76; RESP 16; TEMP 37.1; O2SAT 98
== END 2024-09-21 19:52 | disposition home or self-care (01) ==
PROVIDERS: Emergency Provider Emergency Medicine
DX: O20.0 Threatened abortion (principal); Z3A.01 Less than 8 weeks gestation of pregnancy
CPT/HCPCS: 36415; 76801; 80053; 81001; 84702; 85025; 85461; 86850; 86900; 86901; 99284; A9270

== ENCOUNTER 2024-09-24 11:51 | Outpatient (CLI) | payer BC, SELFPAY ==
--- OUTSIDE RECORDS SUMMARY | 2024-09-24 11:59 | XMS_ITS | Data Portability ---
Author Organization [facility] Sharita Lombardo Address [address] [place] [address] Care Team Providers Care Tongue Carrier Name Role Phone ANGELI GOODWIN Registered Dental Assistant Assessment No assessment recorded. Plan of Treatment Reminders Order Date Submit Date Provider Last Modified By Organization Details Last Modified Time Details Appointments None recorded . Lab urinalys is, dipstick 2023 024 [email or web address] In-Office Order, Internal Use Only DO Not Attach Compendium DO Not Attach Compendium, Do Not Delete/merge, [id number] 4 03:49:00 urinalys is, dipstick 2022 023 [email or web address] In-Office Order, Internal Use Only DO Not Attach Compendium DO Not Attach Compendium, Do Not Delete/merge, [id number] 3 10:43:04 urinalys is, dipstick 2022 023 [email or web address] In-Office Order, Internal Use Only DO Not Attach Compendium DO Not Attach Compendium, Do Not Delete/merge, [id number] 3 11:03:22 Referral None recorded . Procedures None recorded . Surgeries None recorded . Imaging None recorded . Medication Orders fluconaz ole 150 mg tablet 2022 023 [id number], [address] , [place], [place], [id number], 3 11:20:06 Patient TargetsNo targets recorded. Patient Instructions Encounter Date Encounter Id Patient Instructions Last Modified By Organization Details Last Modified Time 03/08/2023 [id number] Attending Physician Attestation I did not personally see or examine the patient with the resident. I was physically present to provide indirect supervision through entire encounter. I have reviewed the documentation and agree with the history, physical findings, work-up, and medical decision making as recorded. Karen Blackwood MD mmetias Not available 03/08/2023 10:56:43 03/15/2023 [id number] On the date of this encounter, I was immediately available to assist the resident/fellow in the care of the patient, and have reviewed and agree with the resident s findings and plan of care. ~MD yeison Goodwin Not available 03/19/2023 13:16:40 03/29/2023 [id number] On the date of this encounter, I was immediately available to assist the resident/fellow in the care of the patient, and have reviewed and agree with the resident s findings and plan of care. ~MD yeison Goodwin Not available 03/29/2023 11:59:11 06/07/2023 [id number] On the date of this encounter, I [...] culture, routine FINAL REPORT Not Available [facility] ([facility]) [address] [place], [address], 02/10/2023 05:10:05 02/09/2002/10/2023 URINE CULTU RESHERIE result 1 COMMEN T Mixed uroge nital purvi 25,00 0-50, 000 colon y formi ng units per mL Not Available [facility] ([facility]) [address] [facility], [place], [address], 02/10/2023 05:10:05 02/09/20 23 02/08/2023 urina lysis , dipst ick Leukocytes Small Not Available In-Offi ce Order Internal Use Only DO Not Attach Compendium DO Not Attach Compendium, Do Not Delete/merge, [id number] 02/08/2023 16:04:22 02/09/20 23 02/08/2023 urina lysis , dipst ick Nitrite negati ve Not Available In-Office Order Internal Use Only DO Not Attach Compendium DO Not Attach Compendium, Do Not Delete/merge, [id number] 02/08/2023 16:04:22 02/09/20 23 02/08/2023 urina lysis , dipst ick Urobilinogen 2 Not Available In-Of fice Order Internal Use Only DO Not Attach Compendium DO Not Attach Compendium, Do Not Delete/merge, [id number] 02/08/2023 16:04:22 02/09/20 23 02/08/2023 urina lysis , dipst ick Protein Negati ve Not Available In-Office Order Internal Use Only DO Not Attach Compendium DO Not Attach Compendium, Do Not Delete/merge, [id number] 02/08/2023 16:04:22 02/09/20 23 02/08/2023 urina lysis , dipst ick pH 6.0 Not Available In-Office Order Internal Use Only DO Not Attach Compendium DO Not Attach Compendium, Do Not Delete/merge, [id number] 02/08/2023 16:04:22 02/09/20 23 02/08/2023 urina lysis , dipst ick Blood Non-He molyze d: Trace Not Available In-Office Order Internal Use Only DO Not Attach Compendium DO Not Attach Compendium, Do Not Delete/merge, [id number] 02/08/2023 16:04:22 02/09/20 23 02/08/2023 urina lysis , dipst ick Specific [place] Valle 1.025 Not Available In-Off ice Order Internal Use Only DO Not Attach Compendium DO Not Attach Compendium, Do Not Delete/merge, [id number] 02/08/2023 16:04:22 02/09/20 23 02/08/2023 urina lysis , dipst ick Ketone Negati ve Not Available In-Office Order Internal Use Only DO Not Attach Compendium DO Not Attach Compendium, Do Not Delete/merge, [id number] 02/08/2023 16:04:22 02/09/20 23 02/08/2023 urina lysis , dipst ick Bilirubin Negati ve Not Available In-Office Order Internal Use Only DO Not Attach Compendium DO Not Attach Compendium, Do Not Delete/merge, [id number] 02/08/2023 16:04:22 02/09/20 23 02/08/2023 urina lysis , dipst ick Glucose Negati ve Not Available In-Office Order Internal Use Only DO Not Attach Compendium DO Not Attach Compendium, Do Not Delete/merge, [id number] 02/08/2023 16:04:22 02/16/20 23 02/16/2023 NUSWA B VAGIN ITIS PLUS (VG+) atopobium vaginae LOW - 0 score Not Available [facility] ([facility]) [address] [place], [address], 02/17/2023 14:11:30 02/16/20 23 02/16/2023 NUSWA B VAGIN ITIS PLUS (VG+) bvab 2 LOW - 0 score Not Available [facility] ([facility]) [address] [place], [address], 02/17/2023 14:11:30 02/16/20 23 02/16/2023 NUSWA B [...] Drug Admin istra tion. Not Available [facility] ([facility]) [address] [facility], [place], [address], 02/17/2023 14:11:30 02/16/2002/16/2023 NUSWA B VAGIN ITIS PLUS (VG+) paulie albicans, ABIGAIL NEGATI VE negati ve Not Available [facility] ([facility]) [address] [place], [address], 02/17/2023 14:11:30 02/16/2002/16/2023 NUA B VAGIN ITIS PLUS (VG+) paulie glabrata, ABIGAIL NEGATI VE negati ve Not Available [facility] ([facility]) [address] [place], [address], 02/17/2023 14:11:30 02/16/2002/17/2023 NUA B VAGIN ITIS PLUS (VG+) trich vag by ABIGAIL NEGATI VE negati ve Not Available [facility] ([facility]) [address] [place], [address], 02/17/2023 14:11:30 02/16/2002/17/2023 NUSWA B VAGIN ITIS PLUS (VG+) chlamydia trachomatis, ABIGAIL NEGATI VE negati ve Not Available [facility] ([facility]) [address] [place], [address], 02/17/2023 14:11:30 02/16/2002/17/2023 NUSWA B VAGIN ITIS PLUS (VG+) neisseria gonorrhoeae, ABIGAIL NEGATI VE negati ve Not Available [facility] ([facility]) [address] [place], [address], 02/17/2023 14:11:30 02/16/2002/17/2023 STREP GP B ABIGAIL [...] n is noted . Not Available [facility] ([facility]) [address] [facility], [place], [address], 02/17/2023 14:11:31 02/16/2002/15/2023 urina lysis , dipst ick Leukocytes Trace Not Available In-Offi ce Order Internal Use Only DO Not Attach Compendium DO Not Attach Compendium, Do Not Delete/merge, [id number] 02/15/2023 08:58:36 02/16/2002/15/2023 urina lysis , dipst ick Nitrite negati ve Not Available In-Office Order Internal Use Only DO Not Attach Compendium DO Not Attach Compendium, Do Not Delete/merge, [id number] 02/15/2023 08:58:36 02/16/2002/15/2023 urina lysis , dipst [...] 02/16/2002/15/2023 urina lysis , dipst ick Specific [place] Valle 1.020 Not Available In-Off ice Order Internal Use Only DO Not Attach Compendium DO Not Attach Compendium, Do Not Delete/merge, 02/15/2023 08:58:36 02/16/2002/15/2023 urina lysis , dipst ick Ketone Negati ve Not Available In-Office Order Internal Use Only DO Not Attach Compendium DO Not Attach Compendium, Do Not Delete/merge, [id number] 02/15/2023 08:58:36 02/16/2002/15/2023 urina lysis , dipst ick Bilirubin Negati ve Not Available In-Office Order Internal Use Only DO Not Attach Compendium DO Not Attach Compendium, Do Not Delete/merge, 02/15/2023 08:58:36 02/16/20 23 02/15/2023 urina lysis , dipst ick Glucose Negati ve Not Available In-Office Order Internal Use Only DO Not Attach Compendium DO Not Attach Compendium, Do Not Delete/merge, [id number] 02/15/2023 08:58:36 02/23/2002/23/2023 NUSWA B VAGIN ITIS PLUS (VG+) atopobium vaginae Low - 0 score Not Available [facility] ([facility]) [address] [facility], [place], [address], 02/24/2023 08:24:57 02/23/2002/23/2023 NUSWA B VAGIN ITIS PLUS (VG+) bvab 2 Low - 0 score Not Available [facility] ([facility]) [address] [facility], [place], [address], 02/24/2023 08:24:57 02/23/2002/23/2023 NUSWA B VAGIN ITIS [...] Drug Admin istra tion. Not Available [facility] ([facility]) [address] [facility], [place], [address], 02/24/2023 08:24:57 02/23/2002/24/2023 NUSWA B VAGIN ITIS PLUS (VG+) paulie albicans, ABIGAIL Positi ve negati ve abnormal Not Available [facility] ([facility]) [address] [facility], [place], [address], 02/24/2023 08:24:57 02/23/2002/24/2023 NUSWA B VAGIN ITIS PLUS (VG+) paulie glabrata, ABIGAIL Negati ve negati ve Not Available [facility] ([facility]) [address] [facility], [place], [address], 02/24/2023 08:24:57 02/23/2002/24/2023 NUSWA B VAGIN ITIS PLUS (VG+) trich vag by ABIGAIL Negati ve negati ve Not Available [facility] ([facility]) [address] [facility], [place], [address], 02/24/2023 08:24:57 02/23/2002/24/2023 NUA B VAGIN ITIS PLUS (VG+) chlamydia trachomatis, ABIGAIL Negati ve negati ve Not Available [facility] ([facility]) [address] [facility], [place], [address], 02/24/2023 08:24:57 02/23/2002/24/2023 NUSWA B VAGIN ITIS PLUS (VG+) neisseria gonorrhoeae, ABIGAIL Negati ve negati ve Not Available [facility] ([facility]) [address] [facility], [place], [address], 02/24/2023 08:24:57 02/23/2002/22/2023 urina lysis , dipst ick Leukocytes Small Not Available In-Offi ce Order Internal Use Only DO Not Attach Compendium DO Not Attach Compendium, Do Not Delete/merge, [id number] 02/22/2023 09:45:25 02/23/20 23 02/22/2023 urina lysis , dipst ick Nitrite negati ve Not Available In-Office Order Internal Use Only DO Not Attach Compendium DO Not Attach Compendium, Do Not Delete/merge, [id number] 02/22/2023 09:45:25 02/23/20 23 02/22/2023 urina lysis , dipst ick Urobilinogen 1 Not Available In-Of fice Order Internal Use Only DO Not Attach Compendium DO Not Attach Compendium, Do Not Delete/merge, [id number] 02/22/2023 09:45:25 02/23/2002/22/2023 urina lysis , dipst ick Protein Trace Not Available In-Office Order Internal Use Only DO Not Attach Compendium DO Not Attach Compendium, Do Not Delete/merge, [id number] 02/22/2023 09:45:25 02/23/2002/22/2023 urina lysis , dipst [...] 02/23/2002/22/2023 urina lysis , dipst ick Specific Del Valle 1.030 Not Available In-Off ice Order Internal Use Only DO Not Attach Compendium DO Not Attach Compendium, Do Not Delete/merge, 02/22/2023 09:45:25 02/23/2002/22/2023 urina lysis , dipst ick Ketone Trace Not Available In-Office Order Internal Use Only DO Not Attach Compendium DO Not Attach Compendium, Do Not Delete/merge, [id number] 02/22/2023 09:45:25 02/23/2002/22/2023 urina lysis , dipst [...] DO Not Attach Compendium, Do Not Delete/merge, [id number] 03/08/2023 10:32:28 03/08/20 23 03/08/2023 urina lysis , dipst ick Nitrite negati ve Not Available In-Office Order Internal Use Only DO Not Attach Compendium DO Not Attach Compendium, Do Not Delete/merge, [id number] 03/08/2023 10:32:28 03/08/20 23 03/08/2023 urina lysis , dipst ick Urobilinogen 1 Not Available In-Of fice Order Internal Use Only DO Not Attach Compendium DO Not Attach Compendium, Do Not Delete/merge, [id number] 03/08/2023 10:32:28 03/08/20 23 03/08/2023 urina lysis , dipst ick Protein Negati ve Not Available In-Office Order Internal Use Only DO Not Attach Compendium DO Not Attach Compendium, Do Not Delete/merge, [id number] 03/08/2023 10:32:28 03/08/20 23 03/08/2023 urina lysis , dipst ick pH 6.0 Not Available In-Office Order Internal Use Only DO Not Attach Compendium DO Not Attach Compendium, Do Not Delete/merge, [id number] 03/08/2023 10:32:28 03/08/20 23 03/08/2023 urina lysis , dipst ick Blood Negati ve Not Available In-Office Order Internal Use Only DO Not Attach Compendium DO Not Attach Compendium, Do Not Delete/merge, [id number] 03/08/2023 10:32:28 03/08/20 23 03/08/2023 urina lysis , dipst ick Specific Del Valle 1.030 Not Available In-Off ice Order Internal Use Only DO Not Attach Compendium DO Not Attach Compendium, Do Not Delete/merge, [id number] 03/08/2023 10:32:28 03/08/20 23 03/08/2023 urina lysis , dipst ick Ketone Negati ve Not Available In-Office Order Internal Use Only DO Not Attach Compendium DO Not Attach Compendium, Do Not Delete/merge, [id number] 03/08/2023 10:32:28 03/08/20 23 03/08/2023 urina lysis , dipst ick Bilirubin Small Not Available In-Offic e Order Internal Use Only DO Not Attach Compendium DO Not Attach Compendium, Do Not Delete/merge, [id number] 03/08/2023 10:32:28 03/08/20 23 03/08/2023 urina lysis [...] 03/15/2023 urina lysis , dipst ick Specific Del Valle 1.030 Not Available In-Off ice Order Internal [...] 06/07/2023 urina lysis , dipst ick Specific Del Valle 1.030 Not Available In-Off ice Order Internal [...] anato my No observ ation record ed. [address], [address], 02/22/2023 09:53:13 02/20/2002/19/2023 US, obste tric, mater nal evalu ation + anato my No observ ation record ed. [address], [address], 02/22/2023 09:53:13 02/27/2002/26/2023 US, obste tric, mater nal evalu ation + anato my No observ ation record ed. [address], [address], 03/08/2023 10:57:21 03/05/2003/05/2023 US, obste tric, mater nal evalu ation + anato my No observ ation record ed. [address], [address], 03/08/2023 10:59:11 03/12/20 23 03/12/2023 US, obste tric, mater nal evalu ation + anato my No observ ation record ed. [address], [address], 03/15/2023 13:51:07 Result Notes None recorded. Problems Name Problem SNOMED Code Status Onset Date Resolution Date Notes Provider Name and Address Organization Details Recorded Time Methicil tiffany resistan t Staphylo coccus aureus infectio n 181917462 Completed 01/25/2023 nAgeli Goodwin MD Attn: Hayder underwood,[address] [place], [address], [place] - [facility] 3 09:31:21 Obesity 956454203 Active 2020 Irena Richardson MD Attn: Accountin g,[address] [facility], [place], [address], [place] [facility] 3 11:22:23 Genital herpes simplex 63504407 Active 2020 Jim Preciado null, [place] - [facility] 1 15:42:14 Abnormal progeste promise 930559089 Completed 202001/25/2023 Angeli Goodwin MD Attn: Accountin g,[address] [facility], [place], [address], [place] [facility] 3 09:31:55 Normal pregnanc y 38608227 Completed 202004/04/2024 Angeli Goodwin MD Attn: Accountin g,[address] [facility], [place], [address], [place] [facility] 4 08:20:55 Pregnanc y 98065662 Completed 202002/18/2021 Maria Elena Souza [place], [place] [facility] 3 11:22:34 Abnormal progeste promise 023819680 Completed 2020 Jim Preciado [place] [facility] 1 15:42:14 Genital herpes simplex 17471112 Completed 2020 Jim Preci[place] [facility] 1 15:42:14 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 Jim Prec[place] [facility] 1 15:42:14 Obesity 005482172 Completed 2020 Jim ShahidIlana [place], [place] [facility] 1 15:42:15 Methicil tiffany resistan t Staphylo coccus aureus infectio n 595967500 Completed Jim Shahid[place]ana [place] [facility] 1 15:42:14 Pregnanc y 86933257 Completed 202203/29/2023 Maria Elena Souza [place], [place] [facility] 3 11:22:34 Recurren t miscarri age 830843453 Completed 2022 Irena Richardson MD Attn: Phyllisin g,[address] [place], [address], [place] [facility] 3 11:22:24 Recurren t miscarri age 721650516 Active 2022 Irena Richardson MD Attn: Phyllisin g,[address] [place], [address], [place] [facility] 3 11:22:24 Obesity 969905391 Completed 2020 Irena Richardson MD Attn: Hayder g,[address] [place], [address], [place] [facility] 3 11:22:23 Advanced maternal age 324772060 Completed 2022 Irena Richardson MD Attn: Hayder g,[address] [place], [address], [place] [facility] 3 11:22:23 Advanced maternal age 671491912 Completed 202204/04/2024 Angeli Goodwin MD Attn: Hayder g,[address] [place], [address], [place] [facility] 4 08:20:41 Group B Streptoc occus carrier 14147632147 03 Completed 2016 Irena Richardson MD Attn: Hayder g,[address] [place], [address], [place] [facility] 3 11:22:23 Candidia sis of vagina 94474573 Completed 2022 fluconaz ole given Irena Richardson MD Attn: Hayder g,[address] [place], [address], [place] [facility] 3 11:22:23 Otitis media 21051865 Active 2023 Angeli Goodwin MD Attn: Hayder underwood,[address] [facility], [place], [address], [place] [facility] 4 08:20:30 Group B Streptoc occus carrier 21950712796 03 Completed 201604/04/2024 Angeli Goodwin MD Attn: Hayder underwood,[address] [facility], [place], [address], [place] [facility] 4 08:20:36 Subcutan eous contrace ptive implant palpable 509789345 Completed 201601/31/2021 Jim Ilana [facility], [place] - [facility] 1 13:45:21 Chronic idiopath ic constipa tion 96435213 Completed 201601/25/2023 Angeli Goodwin MD Attn: Hayder underwood,[address] [facility], [place], [address], [facility] - [facility] 3 09:32:02 Problem Notes None recorded. Procedures Surgical History Date Name Laterality Status Provider Name and Address Organization Details Recorded Time 02/07/20 22 Date of Last Pap Smear completed Maria Elena Souza MA [facility] - [facility] 02/06/2022 10:43:27 02/19/20 21 Endometrial Biopsy completed Jim Preciado [facility] 02/18/2021 16:53:18 10/18/19 21 Control Implant Removal completed Jim Preciado [facility] 2020 15:18:24 08/24/19 18 Control Implant [...] [facility], obstetric, [facility] evaluation + [facility] [address] [place] [address], [address], 02/22/2023 09:53:13 02/19/2023 US, obstetric, maternal evaluation + anatomy completed [address] [facility] [address] [place], [address], 02/22/2023 09:53:13 02/26/2023 US, obstetric, maternal evaluation + anatomy c [id number]|2024-09-24 11:59:00|2024-09-24 11:59:00|XMS_ITS|BKG DAEMON|External Medical Summaries|[id number]|" CONTINUITY OF CARE DOCUMENT Created on: September 24, 2024 Sandra Pisano : 1985 Sex: Female Author Name jennifer rodriguez Address Unknown Organization [facility] Office Address [address] [facility] [address] [place] [address] Phone [phone] Care Team Providers Care Tongue Carrier Name Role Phone Parag Estevez MD Unavailable LIBBY HARDIN Unavailable INSURANCE PROVIDERS Payer name Policy type / Coverage type [employer]unker red green party ID [facility] [id number] "
--- OUTSIDE RECORDS SUMMARY | 2024-09-24 11:59 | XMS_ITS | Clinical Summary ---
Author Organization [facility] Address [address] [facility] [place] [address] Care Team Providers Care Operational Review Sergeant Name Role Phone Unavailable Primary Care Provider Unavailabl e Source Comments [facility],non-owned Affiliates and Associated Physician Practices is amultiple site organization consisting of ambulatory clinics and hospital sitesin [place], [place], [place] and [place]. This disclosure is being madepursuant to the Care Everywhere program and may not contain all information available regarding this patient. Last updated 18.[facility] Allergies No known active allergies Medications * [...] Info) Description 10/06/2024 2:[address] [facility] [address] [place], [place] [id number] Health Maintenance Due Date Last Done Comments [...]
--- OUTSIDE RECORDS SUMMARY | 2024-09-24 11:59 | XMS_ITS | Clinical Summary ---
Author Organization [facility] Address [address] [place] [id number] Care Team Providers Care Shoe Fitter Name Role Phone Amalia Castro MD Primary Care Provider [phone] Social History Tobacco Use Types Packs/Day Years [...] patient's age to complete this topic Insurance [facility] Care Teams Shoe Fitter Relationship Specialty Start Date End Date Amalia Castro MD [address] [place] [address] PCP - General 01/20/23
== END 2024-09-24 11:52 | disposition home or self-care (01) ==
PROVIDERS: Emergency Medicine; PCP Internal Medicine; Visit Provider Student in an Organized Health Care Education/Training Program
DX: O02.1 Missed abortion (principal)
CPT/HCPCS: 36415; 84702

== ENCOUNTER 2025-05-02 09:46 | Outpatient (CLI) | payer OTHER, SELFPAY ==
--- NOTE | ~2025-05-02 | US_ITS ---
EXAMINATION: US OB <= 14 weeks fetus DATE: 05/02/2025 10:09 INDICATION: Uncertain gestational dates TECHNIQUE: Real-time transabdominal obstetric ultrasound. FINDINGS: The uterus measures 15.6 x 6.4 x 7.7 cm. There is an intrauterine gestational sac, with pole identified. The crown rump length measures 4.06 cm, which correlates with a estimated gestational age of 11 weeks 0 days. heart tones are identified measuring 167 BPM. Ovaries within normal limits. No free fluid in the pelvis. IMPRESSION: 1. SL IUP with an EGA of 11 weeks, 0 days (EDC by current ultrasound of 11/21/2025). Reviewed, dictated and finalized at location O. RAISING DIRECTOR IMPRESSION: 1. SL IUP with an EGA of 11 weeks, 0 days (EDC by current ultrasound of 11/22/19 26).
== END 2025-05-02 09:47 | disposition home or self-care (01) ==
LOC: MICIMG 09:47
PROVIDERS: PCP Internal Medicine; Visit Provider Student in an Organized Health Care Education/Training Program
DX: Z34.90 Encounter for supervision of normal pregnancy, unspecified, unspecified trimester (principal)
CPT/HCPCS: 76801